=== PATIENT | male | born 1965 | race Caucasian/White ===

== ENCOUNTER → 2021-01-28 | Day surgery (SDC) | payer OTHER ==
[~2021-01-28] VITALS: Ht 172.7 cm; Wt 59.0 kg
[~2021-01-28] MED LIST: LANTUS100 UNIT/1 SC; ZESTRIL5 MG PO; [UNRECOGNIZED DRUG - OTHER] SC
[2021-01-28 11:28] LABS: BASOPHIL 0.8 % (0-2); EOSINOPHIL 3.1 % (0-5); HGB 14.9 g/dl (13.2-18.0); LYMPHOCYTE 25.1 % (15-48); MCH 29.7 pg (25.0-31.0); MCHC 33.9 g/dL (32.0-36.0); MCV 87.8 fL (78.0-100.0); MONOCYTE 7.3 % (0-12); NEUTROPHIL 63.3 % (41-80); NRBC 0; PLT 201 K/uL (150-400); RBC 5.01 M/uL (4.70-6.00); RDW 12.5 % (11.5-14.0); WBC 7.1 K/uL (4.0-10.5)
[2021-01-28 11:44] LABS: ALBUMIN 3.9 g/dL (3.4-5.0); BILIRUBIN - TOTAL 0.6 mg/dL (0.2-1.0); CREATININE 0.71 mg/dL (0.67-1.17); GLOBULIN (CALCULATION) 3.5 g/dL; POTASSIUM 3.5 mmol/L (3.5-5.1); TOTAL PROTEIN 7.4 g/dL (6.4-8.2)
== END | disposition home or self-care (01) ==
LOC: FAS 10:28 → EDBD 11:30
PROVIDERS: Oral & Maxillofacial Surgery
DX: K02.9 Dental caries, unspecified (principal); K04.7 Periapical abscess without sinus; I10 Essential (primary) hypertension; E10.622 Type 1 diabetes mellitus with other skin ulcer; Z95.0 Presence of cardiac pacemaker; I49.3 Ventricular premature depolarization; Z95.1 Presence of aortocoronary bypass graft; I25.10 Atherosclerotic heart disease of native coronary artery without angina pectoris; Z88.5 Allergy status to narcotic agent
CPT/HCPCS: D7140; D7210; 36415; 71045; 80053; 85025; 93005; J1100; J2250; J2704; J3010; J7120